=== PATIENT | male | born 1980 | race Caucasian/White ===

== ENCOUNTER 2016-09-25 12:22 | Emergency (ER) | payer BC ==
[~2016-09-25] VITALS: Ht 170.2 cm; Wt 69.9 kg
[~2016-09-25 12:22] MED LIST: MOTRIN800 MG PO; NOHOMEMEDS; PERCOCET 5/31 TABLET PO; ZOFRAN ODT4 MG PO
[2016-09-25 13:20] LABS: INFLUENZA A VIRAL ANTIGEN NEGATIVE; INFLUENZA B VIRAL ANTIGEN NEGATIVE
[2016-09-25] MEDS ORDERED: NAPROXEN500 MG PO (13:55)
[2016-09-25 14:16] VITALS: BP 125/74
== END 2016-09-25 14:17 | disposition home or self-care (01) ==
LOC: EME 12:22
PROVIDERS: Physician Assistant
DX: J02.0 Streptococcal pharyngitis (principal)
CPT/HCPCS: 70360; 87502; 87651 90; 99281; 99283; J0561; J1100; J1885

== ENCOUNTER 2017-03-22 11:51 | Emergency (ER) | payer BC ==
[~2017-03-22] VITALS: Ht 167.6 cm; Wt 63.7 kg
[~2017-03-22 11:51] MED LIST changes: +NAPROXEN500 MG PO
[2017-03-22 14:28] VITALS: BP 118/65
== END 2017-03-22 14:30 | disposition home or self-care (01) ==
LOC: EME 11:51
DX: S51.812A Laceration without foreign body of left forearm, initial encounter (principal); W25.XXXA Contact with sharp glass, initial encounter; Y92.008 Other place in unspecified non-institutional (private) residence as the place of occurrence of the external cause; Z23 Encounter for immunization
CPT/HCPCS: 99281; 99283

== ENCOUNTER 2017-09-10 09:18 | Emergency (ER) | payer SELFPAY ==
[~2017-09-10] VITALS: Ht 170.2 cm; Wt 69.0 kg
[2017-09-10] MEDS ORDERED: TAMIFLU75 MG PO (11:12)
[2017-09-10 11:21] VITALS: BP 120/70
== END 2017-09-10 11:22 | disposition home or self-care (01) ==
LOC: EME 09:18
DX: J10.1 Influenza due to other identified influenza virus with other respiratory manifestations (principal)
CPT/HCPCS: 71046; 87502